=== PATIENT | female | born 1950 | race Asian ===

== ENCOUNTER 2016-09-25 14:37 | Inpatient (IN) | payer MEDICARE, OTHER ==
[~2016-09-25] VITALS: Ht 157.5 cm; Wt 68.5 kg
[~2016-09-25 14:37] MED LIST: AMLO-512 PO; CLON.2 PO; INSLAN SQ; MELA3 PO; XALA2.5OS OU
[2016-09-25] MEDS ORDERED: ATOR40TA28 PO (14:51)
[2016-09-25] MEDS ORDERED: SITA100 PO (14:51)
[2016-09-25] MEDS ORDERED: LISI-661 PO (14:51)
[2016-09-25 14:55] LABS: GLUCOSE,POINT OF CARE 244 MG/DL (70-110)
[2016-09-25 15:47] LABS: BASOPHILS % (AUTO) 0.2 % (0.0-2.0); EOSINOPHILS % (AUTO) 0.2 % (1.0-6.0); HEMATOCRIT 36.1 % (36-46); HEMOGLOBIN 12.3 g/dL (12.0-16.0); LYMPHOCYTES # (AUTO) 1.2 K/uL (1.0-4.8); LYMPHOCYTES % (AUTO) 9.5 % (22.0-44.0); MEAN CORPUSCULAR HEMOGLOBIN 29.5 pg (26.0-34.0); MEAN CORPUSCULAR HGB CONC 34.1 G/dL (31.0-37.0); MEAN CORPUSCULAR VOLUME 87 fL (80-100); MONOCYTES # (AUTO) 0.6 K/uL (0.1-1.0); MONOCYTES % (AUTO) 4.9 % (2.0-9.0); PLATELET COUNT (AUTO) 213 K/uL (150-450); RED BLOOD CELL COUNT(AUTO) 4.17 MIL/uL (4.00-5.20); RED CELL DISTRIBUTION WIDTH 12.3 % (11.5-14.5); WHITE BLOOD COUNT (AUTO) 12.9 K/uL (4.5-11.0)
[2016-09-25 15:56] LABS: NEUTROPHILS % (AUTO) 85.2 % (40.0-70.0)
[2016-09-25 15:57] LABS: ANION GAP 8 mmol/L (8-16); CALCIUM, TOTAL 9.7 mg/dL (8.8-10.5); CARBON DIOXIDE 28 mmol/L (22-29); CHLORIDE 91 mmol/L (98-107); CREATININE 0.88 mg/dL (0.60-1.30); GLOMERULAR FILTR. RATE CALC > 60 mL/min (>60); POTASSIUM 3.5 mmol/L (3.5-5.1); SODIUM SERUM 127 mmol/L (136-145); UREA NITROGEN, BLOOD 19 mg/dL (7-18)
[2016-09-25] MEDS ORDERED: ONDANSETRON HCL 4 MG/2 ML VIAL IVP ONE (18:15)
[2016-09-25] MEDS ORDERED: MORPHINE SULFATE 4 MG/ML SYRINGE IVP ONE ×2 (18:15→21:00)
[2016-09-25] MEDS ORDERED: SODIUM CHLORIDE 0.9% 1,000 ML IV ONE ×2 (18:15→20:00)
[2016-09-25] MEDS ORDERED: DEXAMETHASONE SOD PHOS 4 MG/ML 5 ML VIAL IM ONE (18:15)
[2016-09-25 18:34] LABS: APPEARANCE,URINE CLEAR (CLEAR); GLUCOSE, URINE (UA) >=1000 mg/dL (NEGATIVE); KETONES,URINE TRACE mg/dL (NEGATIVE); LEUKOCYTE ESTERASE ,URINE NEGATIVE (NEGATIVE); OCCULT BLOOD,URINE MODERATE (NEGATIVE); PROTEIN,URINE SEE CONFIRM (NEGATIVE)
[2016-09-25 18:36] LABS: ADD UA MICROSCOPIC YES
[2016-09-25 18:43] LABS: SQUAMOUS EPITHELIAL CELL,UR Rare /LPF (None Seen); SULFOSALICYLIC ACID,URINE 3+ (Negative)
[2016-09-25] MEDS ORDERED: ONDANSETRON HCL 4 MG/2 ML VIAL IVP PRN (22:30)
[2016-09-25] MEDS ORDERED: 0.9% SODIUM CHLORIDE 10 ML SYRINGE IVP PRN (22:30)
[2016-09-25] MEDS ORDERED: ACETAMINOPHEN 325 MG TABLET PO PRN (22:30)
[2016-09-25 22:37] LABS: INFLUENZA TYPE B NEGATIVE FOR TYPE B (NEGATIVE)
[2016-09-26] VITALS (7 sets, daily range): BP systolic 122–152; BP diastolic 67–93
[2016-09-26] MEDS ORDERED: ONDANSETRON HCL 4 MG/2 ML VIAL IVP PRN (06:45)
[2016-09-26] MEDS ORDERED: BISACODYL 10 MG RECTAL RECTAL SUPPOSITORY PR PRN (06:45)
[2016-09-26] MEDS ORDERED: ZOLPIDEM TARTRATE 5 MG TABLET PO PRN (06:45)
[2016-09-26] MEDS ORDERED: IPRATROPIUM BROMIDE 0.5 MG/2.5 ML NEB SOLUTION NEB PRN (06:45)
[2016-09-26] MEDS ORDERED: ALBUTEROL SULFATE 2.5 MG/0.5 ML NEB SOLUTION NEB PRN (06:45)
[2016-09-26] MEDS ORDERED: DEXTROSE 50%-WATER 25 GM/50 ML SYRINGE IVP PRN (07:00)
[2016-09-26] MEDS ORDERED: MORPHINE SULFATE 2 MG/ML SYRINGE IVP PRN (07:15)
[2016-09-26 07:36] LABS: BASOPHILS # (AUTO) 0.02 K/uL (0.00-0.20); BASOPHILS % (AUTO) 0.2 % (0.0-2.0); EOSINOPHILS % (AUTO) 0.01 % (1.0-6.0); HEMATOCRIT 32.2 % (36-46); HEMOGLOBIN 11.2 g/dL (12.0-16.0); LYMPHOCYTES # (AUTO) 0.9 K/uL (1.0-4.8); LYMPHOCYTES % (AUTO) 9.1 % (22.0-44.0); MEAN CORPUSCULAR HEMOGLOBIN 29.6 pg (26.0-34.0); MEAN CORPUSCULAR HGB CONC 34.7 G/dL (31.0-37.0); MEAN CORPUSCULAR VOLUME 85 fL (80-100); MONOCYTES # (AUTO) 0.6 K/uL (0.1-1.0); MONOCYTES % (AUTO) 5.9 % (2.0-9.0); NEUTROPHILS # (AUTO) 8.7 K/uL (1.8-7.7); NEUTROPHILS % (AUTO) 84.8 % (40.0-70.0); PLATELET COUNT (AUTO) 182 K/uL (150-450); RED BLOOD CELL COUNT(AUTO) 3.78 MIL/uL (4.00-5.20); RED CELL DISTRIBUTION WIDTH 12.4 % (11.5-14.5); WHITE BLOOD COUNT (AUTO) 10.2 K/uL (4.5-11.0)
[2016-09-26 07:46] LABS: CALCIUM, TOTAL 8.8 mg/dL (8.8-10.5); CREATININE 1.03 mg/dL (0.60-1.30); POTASSIUM 4.5 mmol/L (3.5-5.1)
[2016-09-26 07:52] LABS: ALBUMIN 3.1 g/dL (3.4-5.0); BILIRUBIN,TOTAL 0.3 mg/dL (0.1-1.0); TOTAL PROTEIN, SERUM 8.2 g/dL (6.4-8.2)
[2016-09-26 08:16] LABS: GLUCOSE,POINT OF CARE 279 MG/DL (70-110)
[2016-09-26] MEDS: PANTOPRAZOLE SODIUM 40 MG/VIAL IVP SCH (08:20)
[2016-09-26] MEDS: HEPARIN SODIUM,PORCINE 5,000 UNITS/ML VIAL SQ SCH ×2 (08:21→15:14)
[2016-09-26] MEDS: AmLODIPine BESYLATE 10 MG TABLET PO SCH (08:21)
[2016-09-26] MEDS: LORATADINE 10 MG TABLET PO SCH (08:21)
[2016-09-26] MEDS: DOCUSATE SODIUM 100 MG CAPSULE PO SCH ×2 (08:21→20:44)
[2016-09-26] MEDS: LISINOPRIL 10 MG TABLET PO SCH (08:21)
[2016-09-26] MEDS: AZITHROMYCIN 500 MG/NS 250 ML IV SCH (08:43)
[2016-09-26] MEDS: SODIUM CHLORIDE 0.9% 1,000 ML IV SCH ×2 (08:44→21:07)
[2016-09-26] MEDS ORDERED: LEVOFLOXACIN 500 MG TABLET PO SCH (09:00)
[2016-09-26] MEDS ORDERED: CloNIDine HCL 0.2 MG TABLET PO SCH (09:00)
[2016-09-26] MEDS ORDERED: SitaGLIPtin PHOSPHATE 100 MG TABLET PO SCH (09:00)
[2016-09-26] MEDS ORDERED: LATANOPROST 0.005% 2.5 ML OPHTHALMIC SOLUTION OU SCH (09:00)
[2016-09-26] MEDS ORDERED: INSULIN DETEMIR 100 UNITS/ML SQ SCH (09:00)
[2016-09-26] MEDS: TIMOLOL MALEATE 0.5% 5 ML OPHTHALMIC SOLUTION OU SCH (10:55)
[2016-09-26] MEDS: ASPIRIN 81 MG CHEWABLE TABLET PO SCH (10:56)
[2016-09-26] MEDS: CefTRIAXone 1 GM/DEXTROSE 50 ML IV SCH (10:56)
[2016-09-26] MEDS: INSULIN ASPART 100 UNITS/ML SQ PRN ×3 (11:40→21:01)
[2016-09-26 12:26] LABS: GLUCOSE COMMENT 1 Received Meds; GLUCOSE,POINT OF CARE 309 MG/DL (70-110)
[2016-09-26] MEDS: ACETAMINOPHEN 325 MG TABLET PO PRN ×2 (15:14→20:44)
[2016-09-26 15:51] LABS: OSMOLALITY 273 mOS/kg (270-310)
[2016-09-26 16:06] LABS: ANION GAP 6 mmol/L (8-16); CALCIUM, TOTAL 8.8 mg/dL (8.8-10.5); CARBON DIOXIDE 28 mmol/L (22-29); CHLORIDE 93 mmol/L (98-107); GLOMERULAR FILTR. RATE CALC > 60 mL/min (>60); POTASSIUM 3.8 mmol/L (3.5-5.1); SODIUM SERUM 127 mmol/L (136-145); UREA NITROGEN, BLOOD 18 mg/dL (7-18); URIC ACID 3.3 mg/dL (2.6-7.2)
[2016-09-26 19:31] LABS: GLUCOSE COMMENT 1 Received Meds; GLUCOSE,POINT OF CARE 184 MG/DL (70-110)
[2016-09-26] MEDS: MELATONIN 3 MG TABLET PO SCH (20:45)
[2016-09-26] MEDS: SitaGLIPtin PHOSPHATE 100 MG TABLET PO SCH (20:53)
[2016-09-26] MEDS: LATANOPROST 0.005% 2.5 ML OPHTHALMIC SOLUTION OU SCH (20:54)
[2016-09-26] MEDS: INSULIN DETEMIR 100 UNITS/ML SQ SCH (21:04)
[2016-09-26] MEDS: ATORVASTATIN CALCIUM 40 MG TABLET PO SCH (21:07)
[2016-09-27] MEDS: HEPARIN SODIUM,PORCINE 5,000 UNITS/ML VIAL SQ SCH ×4 (00:08→21:09)
[2016-09-27 03:16] LABS: GLUCOSE,POINT OF CARE 220 MG/DL (70-110)
[2016-09-27 04:45] VITALS: BP 157/84
[2016-09-27] MEDS: HYDROCODONE/ACETAMINOPHEN 5-325 MG TABLET PO PRN ×2 (04:53→21:05)
[2016-09-27] MEDS: INSULIN ASPART 100 UNITS/ML SQ PRN ×4 (05:48→21:28)
[2016-09-27 06:03] LABS: BASOPHILS # (AUTO) 0.02 K/uL (0.00-0.20); BASOPHILS % (AUTO) 0.2 % (0.0-2.0); EOSINOPHILS # (AUTO) 0.01 K/uL (0.00-0.70); EOSINOPHILS % (AUTO) 0.11 % (1.0-6.0); HEMATOCRIT 30.8 % (36-46); HEMOGLOBIN 10.8 g/dL (12.0-16.0); LYMPHOCYTES # (AUTO) 0.8 K/uL (1.0-4.8); LYMPHOCYTES % (AUTO) 7.8 % (22.0-44.0); MEAN CORPUSCULAR HEMOGLOBIN 29.7 pg (26.0-34.0); MEAN CORPUSCULAR HGB CONC 34.9 G/dL (31.0-37.0); MEAN CORPUSCULAR VOLUME 85 fL (80-100); MONOCYTES # (AUTO) 0.8 K/uL (0.1-1.0); MONOCYTES % (AUTO) 7.4 % (2.0-9.0); NEUTROPHILS # (AUTO) 8.8 K/uL (1.8-7.7); NEUTROPHILS % (AUTO) 84.6 % (40.0-70.0); PLATELET COUNT (AUTO) 180 K/uL (150-450); RED BLOOD CELL COUNT(AUTO) 3.63 MIL/uL (4.00-5.20); RED CELL DISTRIBUTION WIDTH 12.5 % (11.5-14.5); WHITE BLOOD COUNT (AUTO) 10.4 K/uL (4.5-11.0)
[2016-09-27 06:38] LABS: ALBUMIN 2.7 g/dL (3.4-5.0); BILIRUBIN,TOTAL 0.2 mg/dL (0.1-1.0); CALCIUM, TOTAL 8.3 mg/dL (8.8-10.5); CHOL/HDL RATIO 2.3 (3.9-5.7); MAGNESIUM 1.5 mg/dL (1.80-2.40); POTASSIUM 3.2 mmol/L (3.5-5.1); THYROID STIMULATING HORMONE 0.37 uIU/mL (0.36-3.74); TOTAL PROTEIN, SERUM 7.3 g/dL (6.4-8.2)
[2016-09-27 06:41] LABS: GLUCOSE,POINT OF CARE 162 MG/DL (70-110)
[2016-09-27 08:03] LABS: VITAMIN B12 LEVEL 721 pg/mL (211-911)
[2016-09-27] MEDS: DOCUSATE SODIUM 100 MG CAPSULE PO SCH ×2 (08:13→21:06)
[2016-09-27] MEDS: LORATADINE 10 MG TABLET PO SCH (08:13)
[2016-09-27] MEDS: LISINOPRIL 10 MG TABLET PO SCH (08:13)
[2016-09-27] MEDS: AmLODIPine BESYLATE 10 MG TABLET PO SCH (08:13)
[2016-09-27] MEDS: AZITHROMYCIN 500 MG/NS 250 ML IV SCH (08:14)
[2016-09-27] MEDS: ASPIRIN 81 MG CHEWABLE TABLET PO SCH (08:14)
[2016-09-27] MEDS: TIMOLOL MALEATE 0.5% 5 ML OPHTHALMIC SOLUTION OU SCH (08:14)
[2016-09-27] MEDS: PANTOPRAZOLE SODIUM 40 MG/VIAL IVP SCH (08:14)
[2016-09-27] MEDS: CefTRIAXone 1 GM/DEXTROSE 50 ML IV SCH (08:14)
[2016-09-27 08:24] VITALS: BP 137/77
[2016-09-27] MEDS ORDERED: POTASSIUM CHLORIDE 20 MEQ ER TABLET PO ONE (10:45)
[2016-09-27] MEDS ORDERED: MAGNESIUM SULFATE 4 GM/WATER 100 ML IV ONE (10:45)
[2016-09-27 11:36] VITALS: BP 139/75
[2016-09-27 11:41] LABS: GLUCOSE,POINT OF CARE 184 MG/DL (70-110)
[2016-09-27] MEDS: SODIUM CHLORIDE 0.9% 1,000 ML IV SCH (12:45)
[2016-09-27 15:13] VITALS: BP 151/83
[2016-09-27] MEDS: ACETAMINOPHEN 325 MG TABLET PO PRN (15:28)
[2016-09-27 17:41] LABS: GLUCOSE COMMENT 1 Received Meds; GLUCOSE,POINT OF CARE 166 MG/DL (70-110)
[2016-09-27 19:49] VITALS: BP 167/90
[2016-09-27] MEDS: ATORVASTATIN CALCIUM 40 MG TABLET PO SCH (21:05)
[2016-09-27] MEDS: MELATONIN 3 MG TABLET PO SCH (21:05)
[2016-09-27] MEDS: SitaGLIPtin PHOSPHATE 100 MG TABLET PO SCH (21:05)
[2016-09-27] MEDS: LATANOPROST 0.005% 2.5 ML OPHTHALMIC SOLUTION OU SCH (21:06)
[2016-09-27] MEDS: INSULIN DETEMIR 100 UNITS/ML SQ SCH (21:28)
[2016-09-27 23:16] VITALS: BP 138/78
[2016-09-28] MEDS: HYDROCODONE/ACETAMINOPHEN 5-325 MG TABLET PO PRN ×3 (02:07→20:42)
[2016-09-28 03:13] LABS: GLUCOSE COMMENT 1 Received Meds; GLUCOSE,POINT OF CARE 226 MG/DL (70-110)
[2016-09-28 04:29] VITALS: BP 131/73
[2016-09-28] MEDS: INSULIN ASPART 100 UNITS/ML SQ PRN ×4 (06:13→20:47)
[2016-09-28] MEDS: SODIUM CHLORIDE 0.9% 1,000 ML IV SCH ×2 (06:29→08:28)
[2016-09-28 06:35] LABS: GLUCOSE,POINT OF CARE 128 MG/DL (70-110)
[2016-09-28] MEDS ORDERED: POTASSIUM CHL 10 MEQ/WATER 50 ML IV PRN (07:00)
[2016-09-28] MEDS ORDERED: MAGNESIUM SULFATE 4 GM/WATER 100 ML IV PRN (07:00)
[2016-09-28] MEDS ORDERED: MAGNESIUM OXIDE 400 MG TABLET PO PRN (07:00)
[2016-09-28] MEDS ORDERED: MAGNESIUM SULFATE 2 GM in DEXTROSE 5%-WATER 50 ML IV PRN (07:00)
[2016-09-28 08:12] VITALS: BP 152/99
[2016-09-28 08:18] LABS: ALBUMIN 2.5 g/dL (3.4-5.0); POTASSIUM 3.4 mmol/L (3.5-5.1)
[2016-09-28] MEDS: POTASSIUM CHLORIDE 20 MEQ ER TABLET PO PRN (08:25)
[2016-09-28] MEDS: LISINOPRIL 10 MG TABLET PO SCH (08:26)
[2016-09-28] MEDS: ASPIRIN 81 MG CHEWABLE TABLET PO SCH (08:26)
[2016-09-28] MEDS: DOCUSATE SODIUM 100 MG CAPSULE PO SCH ×2 (08:26→20:42)
[2016-09-28] MEDS: LORATADINE 10 MG TABLET PO SCH (08:26)
[2016-09-28] MEDS: AmLODIPine BESYLATE 10 MG TABLET PO SCH (08:26)
[2016-09-28] MEDS: HEPARIN SODIUM,PORCINE 5,000 UNITS/ML VIAL SQ SCH ×2 (08:27→15:19)
[2016-09-28] MEDS: TIMOLOL MALEATE 0.5% 5 ML OPHTHALMIC SOLUTION OU SCH (08:27)
[2016-09-28] MEDS: PANTOPRAZOLE SODIUM 40 MG/VIAL IVP SCH (08:27)
[2016-09-28] MEDS: AZITHROMYCIN 500 MG/NS 250 ML IV SCH (08:28)
[2016-09-28] MEDS: CefTRIAXone 1 GM/DEXTROSE 50 ML IV SCH (08:28)
[2016-09-28 11:17] VITALS: BP 149/85
[2016-09-28 12:31] LABS: GLUCOSE COMMENT 1 Received Meds; GLUCOSE,POINT OF CARE 186 MG/DL (70-110)
[2016-09-28 15:35] VITALS: BP 149/99
[2016-09-28 18:16] LABS: GLUCOSE COMMENT 1 Received Meds; GLUCOSE,POINT OF CARE 163 MG/DL (70-110)
[2016-09-28 20:31] VITALS: BP 151/91
[2016-09-28] MEDS: ATORVASTATIN CALCIUM 40 MG TABLET PO SCH (20:42)
[2016-09-28] MEDS: LATANOPROST 0.005% 2.5 ML OPHTHALMIC SOLUTION OU SCH (20:43)
[2016-09-28] MEDS: SitaGLIPtin PHOSPHATE 100 MG TABLET PO SCH (20:43)
[2016-09-28] MEDS: MELATONIN 3 MG TABLET PO SCH (20:43)
[2016-09-28] MEDS: INSULIN DETEMIR 100 UNITS/ML SQ SCH (20:46)
[2016-09-28 23:52] VITALS: BP 139/76
[2016-09-29] MEDS: HEPARIN SODIUM,PORCINE 5,000 UNITS/ML VIAL SQ SCH ×4 (00:13→23:42)
[2016-09-29 01:56] LABS: GLUCOSE,POINT OF CARE 177 MG/DL (70-110)
[2016-09-29] MEDS: SODIUM CHLORIDE 0.9% 1,000 ML IV SCH (03:25)
[2016-09-29] MEDS: HYDROCODONE/ACETAMINOPHEN 5-325 MG TABLET PO PRN ×5 (03:25→20:49)
[2016-09-29 04:24] VITALS: BP 139/87
[2016-09-29 07:11] VITALS: BP 138/67
[2016-09-29 07:26] LABS: GLUCOSE,POINT OF CARE 111 MG/DL (70-110)
[2016-09-29] MEDS: AZITHROMYCIN 500 MG/NS 250 ML IV SCH (08:16)
[2016-09-29] MEDS: LISINOPRIL 10 MG TABLET PO SCH (08:43)
[2016-09-29] MEDS: DOCUSATE SODIUM 100 MG CAPSULE PO SCH ×2 (08:44→20:50)
[2016-09-29] MEDS: TIMOLOL MALEATE 0.5% 5 ML OPHTHALMIC SOLUTION OU SCH (08:46)
[2016-09-29] MEDS: ASPIRIN 81 MG CHEWABLE TABLET PO SCH (08:47)
[2016-09-29] MEDS: AmLODIPine BESYLATE 10 MG TABLET PO SCH (08:48)
[2016-09-29] MEDS: LORATADINE 10 MG TABLET PO SCH (08:52)
[2016-09-29] MEDS: PANTOPRAZOLE SODIUM 40 MG/VIAL IVP SCH (09:42)
[2016-09-29] MEDS: CefTRIAXone 1 GM/DEXTROSE 50 ML IV SCH (09:42)
[2016-09-29 10:48] LABS: CREATININE 0.94 mg/dL (0.60-1.30); POTASSIUM 3.7 mmol/L (3.5-5.1)
[2016-09-29 10:51] LABS: MAGNESIUM 1.7 mg/dL (1.80-2.40)
[2016-09-29 11:14] VITALS: BP 128/73
[2016-09-29 11:36] LABS: GLUCOSE,POINT OF CARE 146 MG/DL (70-110)
[2016-09-29] MEDS: INSULIN ASPART 100 UNITS/ML SQ PRN ×2 (12:17→17:56)
[2016-09-29] MEDS: AMPICILLIN SODIUM/SULBACTAM NA 3 GM in SODIUM CHLORIDE 0.9% 100 ML IV SCH ×2 (14:56→17:55)
[2016-09-29 15:26] VITALS: BP 135/67
[2016-09-29 17:01] LABS: GLUCOSE,POINT OF CARE 170 MG/DL (70-110)
[2016-09-29] MEDS ORDERED: VANCOMYCIN HCL 1 GM/D5% WATER 200 ML IV ONE (18:30)
[2016-09-29 19:37] VITALS: BP 138/74
[2016-09-29] MEDS: ATORVASTATIN CALCIUM 40 MG TABLET PO SCH (20:49)
[2016-09-29] MEDS: MELATONIN 3 MG TABLET PO SCH (20:49)
[2016-09-29] MEDS: OXYMETAZOLINE HCL 0.05% 15 ML NASAL SPRAY NASAL SCH (20:50)
[2016-09-29] MEDS: SitaGLIPtin PHOSPHATE 100 MG TABLET PO SCH (20:50)
[2016-09-29] MEDS: LATANOPROST 0.005% 2.5 ML OPHTHALMIC SOLUTION OU SCH (20:50)
[2016-09-29] MEDS: INSULIN DETEMIR 100 UNITS/ML SQ SCH (21:00)
[2016-09-29] MEDS: PIPERACILLIN/TAZO 3.375 GM/D5W 50 ML IV SCH (22:19)
[2016-09-29 23:41] VITALS: BP 139/67
[2016-09-30] VITALS (7 sets, daily range): BP systolic 115–139; BP diastolic 64–77
[2016-09-30] MEDS: PIPERACILLIN/TAZO 3.375 GM/D5W 50 ML IV SCH ×3 (04:22→20:45)
[2016-09-30] MEDS: HYDROCODONE/ACETAMINOPHEN 5-325 MG TABLET PO PRN ×2 (04:32→08:28)
[2016-09-30 05:31] LABS: GLUCOSE COMMENT 1 Received Meds; GLUCOSE,POINT OF CARE 132 MG/DL (70-110)
[2016-09-30] MEDS: INSULIN ASPART 100 UNITS/ML SQ PRN ×3 (05:36→20:46)
[2016-09-30 06:01] LABS: GLUCOSE,POINT OF CARE 151 MG/DL (70-110)
[2016-09-30 06:01] LABS: GLUCOSE COMMENT 1 Received Meds; GLUCOSE,POINT OF CARE 166 MG/DL (70-110)
[2016-09-30 06:34] LABS: CALCIUM, TOTAL 8.5 mg/dL (8.8-10.5); CREATININE 1.02 mg/dL (0.60-1.30); POTASSIUM 3.3 mmol/L (3.5-5.1)
[2016-09-30] MEDS: PANTOPRAZOLE SODIUM 40 MG/VIAL IVP SCH (08:13)
[2016-09-30] MEDS: VANCOMYCIN HCL 750 MG in DEXTROSE 5%-WATER 150 ML IV SCH ×2 (08:13→19:32)
[2016-09-30] MEDS: HEPARIN SODIUM,PORCINE 5,000 UNITS/ML VIAL SQ SCH ×3 (08:26→23:56)
[2016-09-30] MEDS: TIMOLOL MALEATE 0.5% 5 ML OPHTHALMIC SOLUTION OU SCH (08:26)
[2016-09-30] MEDS: LORATADINE 10 MG TABLET PO SCH (08:27)
[2016-09-30] MEDS: ASPIRIN 81 MG CHEWABLE TABLET PO SCH (08:27)
[2016-09-30] MEDS: LISINOPRIL 10 MG TABLET PO SCH (08:27)
[2016-09-30] MEDS: DOCUSATE SODIUM 100 MG CAPSULE PO SCH ×2 (08:27→21:48)
[2016-09-30] MEDS: AmLODIPine BESYLATE 10 MG TABLET PO SCH (08:27)
[2016-09-30] MEDS: OXYMETAZOLINE HCL 0.05% 15 ML NASAL SPRAY NASAL SCH ×2 (08:28→20:44)
[2016-09-30] MEDS: MAGNESIUM HYDROXIDE SUSPENSION 30 ML UDCUP PO PRN (08:36)
[2016-09-30 10:17] LABS: BASOPHILS % (AUTO) 0.9 % (0.0-2.0); EOSINOPHILS % (AUTO) 3.9 % (1.0-6.0); HEMOGLOBIN 10.2 g/dL (12.0-16.0); LYMPHOCYTES # (AUTO) 0.8 K/uL (1.0-4.8); LYMPHOCYTES % (AUTO) 17.6 % (22.0-44.0); MEAN CORPUSCULAR HEMOGLOBIN 28.9 pg (26.0-34.0); MEAN CORPUSCULAR HGB CONC 34.1 G/dL (31.0-37.0); MEAN CORPUSCULAR VOLUME 85 fL (80-100); MONOCYTES # (AUTO) 0.4 K/uL (0.1-1.0); MONOCYTES % (AUTO) 8.2 % (2.0-9.0); NEUTROPHILS % (AUTO) 69.4 % (40.0-70.0); PLATELET COUNT (AUTO) 182 K/uL (150-450); RED BLOOD CELL COUNT(AUTO) 3.53 MIL/uL (4.00-5.20); RED CELL DISTRIBUTION WIDTH 12.7 % (11.5-14.5); WHITE BLOOD COUNT (AUTO) 4.4 K/uL (4.5-11.0)
[2016-09-30 10:32] LABS: ALANINE AMINOTRANSFERASE 138 U/L (12-78); ALBUMIN 2.3 g/dL (3.4-5.0); ANION GAP 7 mmol/L (8-16); ASPARTATE AMINOTRANSFERASE 131 U/L (15-37); BILIRUBIN,TOTAL 0.3 mg/dL (0.1-1.0); CALCIUM, TOTAL 8.5 mg/dL (8.8-10.5); CARBON DIOXIDE 30 mmol/L (22-29); CHLORIDE 95 mmol/L (98-107); CREATINE KINASE, TOTAL 28 U/L (26-192); CREATININE 1.17 mg/dL (0.60-1.30); GLOMERULAR FILTR. RATE CALC 46 mL/min (>60); POTASSIUM 3.2 mmol/L (3.5-5.1); PROTHROMBIN TIME 10.8 SEC (9.4-11.6); SODIUM SERUM 132 mmol/L (136-145); TOTAL PROTEIN, SERUM 7.1 g/dL (6.4-8.2); UREA NITROGEN, BLOOD 12 mg/dL (7-18)
[2016-09-30] MEDS: POTASSIUM CHLORIDE 20 MEQ ER TABLET PO PRN (11:36)
[2016-09-30 11:51] LABS: GLUCOSE,POINT OF CARE 237 MG/DL (70-110)
[2016-09-30] MEDS ORDERED: DOBUTamine HCL/D5W 500 MG/250 ML IV BAG [STRESS LAB ONLY] IV ONE (13:35)
[2016-09-30] MEDS ORDERED: ATROPINE SULFATE 0.1 MG/ML 10 ML SYRINGE IVP ONE (13:45)
[2016-09-30] MEDS ORDERED: DOBUTamine HCL/D5W 500 MG/250 ML IV BAG IV ONE (16:09)
[2016-09-30] MEDS ORDERED: ATROPINE SULFATE 1 MG/ML VIAL IM ONE (16:09)
[2016-09-30 17:26] LABS: GLUCOSE,POINT OF CARE 249 MG/DL (70-110)
[2016-09-30 18:50] LABS: CREATINE KINASE, TOTAL 32 U/L (26-192)
[2016-09-30] MEDS: ACETAMINOPHEN 325 MG TABLET PO PRN (19:29)
[2016-09-30] MEDS: SitaGLIPtin PHOSPHATE 100 MG TABLET PO SCH (20:44)
[2016-09-30] MEDS: ATORVASTATIN CALCIUM 40 MG TABLET PO SCH (20:44)
[2016-09-30] MEDS: MELATONIN 3 MG TABLET PO SCH (20:44)
[2016-09-30] MEDS: LATANOPROST 0.005% 2.5 ML OPHTHALMIC SOLUTION OU SCH (20:44)
[2016-09-30] MEDS: INSULIN DETEMIR 100 UNITS/ML SQ SCH (20:45)
[2016-09-30 21:35] LABS: GLUCOSE COMMENT 1 Received Meds; GLUCOSE,POINT OF CARE 171 MG/DL (70-110)
[2016-10-01] VITALS: BP 133/75
[2016-10-01] MEDS: ACETAMINOPHEN 325 MG TABLET PO PRN (00:17)
[2016-10-01] MEDS: PIPERACILLIN/TAZO 3.375 GM/D5W 50 ML IV SCH ×4 (02:26→21:12)
[2016-10-01 04:30] VITALS: BP 132/80
[2016-10-01 05:39] LABS: BASOPHILS % (AUTO) 0.5 % (0.0-2.0); EOSINOPHILS % (AUTO) 11.3 % (1.0-6.0); HEMATOCRIT 29.4 % (36-46); HEMOGLOBIN 9.9 g/dL (12.0-16.0); LYMPHOCYTES # (AUTO) 1.4 K/uL (1.0-4.8); LYMPHOCYTES % (AUTO) 29.8 % (22.0-44.0); MEAN CORPUSCULAR HEMOGLOBIN 29.1 pg (26.0-34.0); MEAN CORPUSCULAR HGB CONC 33.5 G/dL (31.0-37.0); MEAN CORPUSCULAR VOLUME 87 fL (80-100); MONOCYTES # (AUTO) 0.5 K/uL (0.1-1.0); MONOCYTES % (AUTO) 11.6 % (2.0-9.0); NEUTROPHILS # (AUTO) 2.2 K/uL (1.8-7.7); NEUTROPHILS % (AUTO) 46.8 % (40.0-70.0); PLATELET COUNT (AUTO) 198 K/uL (150-450); RED BLOOD CELL COUNT(AUTO) 3.39 MIL/uL (4.00-5.20); RED CELL DISTRIBUTION WIDTH 12.8 % (11.5-14.5); WHITE BLOOD COUNT (AUTO) 4.7 K/uL (4.5-11.0)
[2016-10-01 05:59] LABS: CREATININE 1.11 mg/dL (0.60-1.30); PHOSPHORUS 3.2 mg/dL (2.5-4.9); POTASSIUM 3.7 mmol/L (3.5-5.1)
[2016-10-01 06:06] LABS: GLUCOSE,POINT OF CARE 80 MG/DL (70-110)
[2016-10-01] MEDS ORDERED: RINGERS SOLUTION,LACTATED 1,000 ML IV ONE ×2 (06:24→06:30)
[2016-10-01 06:25] LABS: GLUCOSE,POINT OF CARE 78 MG/DL (70-110)
[2016-10-01] MEDS ORDERED: OXYMETAZOLINE HCL 0.05% 15 ML NASAL SPRAY NASAL ONE (06:42)
[2016-10-01] MEDS ORDERED: LIDOCAINE HCL 1%/EPI 1:200,000/PF 30 ML VIAL ONE (06:42)
[2016-10-01] MEDS ORDERED: SODIUM CHLORIDE 0.9% 100 ML ONE (06:43)
[2016-10-01] MEDS ORDERED: MUPIROCIN CALCIUM 2% 22 GM OINTMENT ONE (06:43)
[2016-10-01] MEDS ORDERED: PHENYLEPHRINE HCL 1% 15 ML NASAL SPRAY NASAL ONE (07:43)
[2016-10-01] MEDS ORDERED: FentaNYL CITRATE-PF 100 MCG/2 ML VIAL IVP PRN ×2 (08:30)
[2016-10-01] MEDS ORDERED: OXYGEN THERAPY IH SCH ×2 (08:30→20:00)
[2016-10-01] MEDS ORDERED: HYDROmorphone 2 MG/ML SYRINGE IVP PRN ×2 (08:30)
[2016-10-01] MEDS ORDERED: MEPERIDINE-PF 25 MG/ML SYRINGE IVP PRN ×2 (08:30)
[2016-10-01] MEDS: OXYMETAZOLINE HCL 0.05% 15 ML NASAL SPRAY NASAL SCH ×2 (09:00→21:00)
[2016-10-01 11:30] VITALS: BP 165/90
[2016-10-01] MEDS ORDERED: DEXAMETHASONE SOD PHOS 4 MG/ML VIAL IVP ONE (12:00)
[2016-10-01] MEDS ORDERED: PROPOFOL 1% 20 ML VIAL IVP ONE (12:00)
[2016-10-01] MEDS ORDERED: METOPROLOL TARTRATE 5 MG/5 ML VIAL IVP ONE (12:00)
[2016-10-01] MEDS ORDERED: MIDAZOLAM HCL 2 MG/2 ML VIAL IVP ONE (12:00)
[2016-10-01] MEDS ORDERED: FentaNYL CITRATE-PF 250 MCG/5 ML VIAL IVP ONE (12:00)
[2016-10-01] MEDS ORDERED: ONDANSETRON HCL 4 MG/2 ML VIAL IVP ONE (12:00)
[2016-10-01] MEDS ORDERED: LIDOCAINE HCL/PF 2% 5 ML VIAL INJ ONE (12:00)
[2016-10-01] MEDS ORDERED: SUCCINYLCHOLINE CHLORIDE 20 MG/ML 10 ML VIAL IVP ONE (12:00)
[2016-10-01] MEDS: ASPIRIN 81 MG CHEWABLE TABLET PO SCH (12:08)
[2016-10-01] MEDS: LORATADINE 10 MG TABLET PO SCH (12:08)
[2016-10-01] MEDS: AmLODIPine BESYLATE 10 MG TABLET PO SCH (12:08)
[2016-10-01] MEDS: LISINOPRIL 10 MG TABLET PO SCH (12:08)
[2016-10-01] MEDS: TIMOLOL MALEATE 0.5% 5 ML OPHTHALMIC SOLUTION OU SCH (12:09)
[2016-10-01] MEDS: DOCUSATE SODIUM 100 MG CAPSULE PO SCH ×2 (12:09→21:21)
[2016-10-01] MEDS: HEPARIN SODIUM,PORCINE 5,000 UNITS/ML VIAL SQ SCH ×2 (12:09→16:00)
[2016-10-01] MEDS: HYDROCODONE/ACETAMINOPHEN 5-325 MG TABLET PO PRN ×2 (12:09→17:07)
[2016-10-01] MEDS: LATANOPROST 0.005% 2.5 ML OPHTHALMIC SOLUTION OU SCH (12:10)
[2016-10-01] MEDS: PANTOPRAZOLE SODIUM 40 MG/VIAL IVP SCH (12:14)
[2016-10-01 12:31] LABS: GLUCOSE,POINT OF CARE 195 MG/DL (70-110)
[2016-10-01 16:06] VITALS: BP 136/50
[2016-10-01] MEDS: VANCOMYCIN HCL 750 MG in DEXTROSE 5%-WATER 150 ML IV SCH (17:13)
[2016-10-01] MEDS: INSULIN ASPART 100 UNITS/ML SQ PRN ×2 (17:17→22:01)
[2016-10-01 20:30] VITALS: BP 133/78
[2016-10-01] MEDS: SitaGLIPtin PHOSPHATE 100 MG TABLET PO SCH (21:21)
[2016-10-01] MEDS: MELATONIN 3 MG TABLET PO SCH (21:21)
[2016-10-01] MEDS: ATORVASTATIN CALCIUM 40 MG TABLET PO SCH (21:21)
[2016-10-01] MEDS: INSULIN DETEMIR 100 UNITS/ML SQ SCH (22:02)
[2016-10-01 22:26] LABS: GLUCOSE,POINT OF CARE 315 MG/DL (70-110)
[2016-10-01 22:26] LABS: GLUCOSE COMMENT 1 Received Meds; GLUCOSE,POINT OF CARE 331 MG/DL (70-110)
[2016-10-02] VITALS (7 sets, daily range): BP systolic 120–135; BP diastolic 59–72
[2016-10-02] MEDS: VANCOMYCIN HCL 750 MG in DEXTROSE 5%-WATER 150 ML IV SCH ×3 (00:06→16:09)
[2016-10-02] MEDS: HEPARIN SODIUM,PORCINE 5,000 UNITS/ML VIAL SQ SCH ×3 (00:07→17:13)
[2016-10-02] MEDS: ACETAMINOPHEN 325 MG TABLET PO PRN ×3 (00:08→18:39)
[2016-10-02] MEDS: PIPERACILLIN/TAZO 3.375 GM/D5W 50 ML IV SCH ×4 (02:33→19:57)
[2016-10-02] MEDS: INSULIN ASPART 100 UNITS/ML SQ PRN ×3 (05:57→20:06)
[2016-10-02 06:21] LABS: GLUCOSE COMMENT 1 Received Meds; GLUCOSE,POINT OF CARE 225 MG/DL (70-110)
[2016-10-02 07:42] LABS: CALCIUM, TOTAL 8.7 mg/dL (8.8-10.5); CREATININE 1.23 mg/dL (0.60-1.30); POTASSIUM 3.6 mmol/L (3.5-5.1)
[2016-10-02] MEDS ORDERED: ASPIRIN 81 MG EC TABLET ONE (08:05)
[2016-10-02] MEDS: PANTOPRAZOLE SODIUM 40 MG/VIAL IVP SCH (08:20)
[2016-10-02] MEDS: TIMOLOL MALEATE 0.5% 5 ML OPHTHALMIC SOLUTION OU SCH (08:21)
[2016-10-02] MEDS: LORATADINE 10 MG TABLET PO SCH (08:22)
[2016-10-02] MEDS: DOCUSATE SODIUM 100 MG CAPSULE PO SCH ×2 (08:22→19:56)
[2016-10-02] MEDS: LISINOPRIL 10 MG TABLET PO SCH (08:22)
[2016-10-02] MEDS: AmLODIPine BESYLATE 10 MG TABLET PO SCH (08:22)
[2016-10-02] MEDS: ASPIRIN 81 MG CHEWABLE TABLET PO SCH (09:00)
[2016-10-02] MEDS: OXYMETAZOLINE HCL 0.05% 15 ML NASAL SPRAY NASAL SCH ×2 (09:00→19:55)
[2016-10-02 17:11] LABS: GLUCOSE,POINT OF CARE 156 MG/DL (70-110)
[2016-10-02] MEDS: SitaGLIPtin PHOSPHATE 100 MG TABLET PO SCH (19:56)
[2016-10-02] MEDS: MELATONIN 3 MG TABLET PO SCH (19:56)
[2016-10-02] MEDS: ATORVASTATIN CALCIUM 40 MG TABLET PO SCH (19:56)
[2016-10-02] MEDS: LATANOPROST 0.005% 2.5 ML OPHTHALMIC SOLUTION OU SCH (19:56)
[2016-10-02] MEDS ORDERED: SODIUM CHLORIDE 0.9% 1,000 ML IV ONE (20:03)
[2016-10-02] MEDS: INSULIN DETEMIR 100 UNITS/ML SQ SCH (20:07)
[2016-10-02 21:15] LABS: GLUCOSE,POINT OF CARE 126 MG/DL (70-110)
[2016-10-02 21:16] LABS: GLUCOSE,POINT OF CARE 198 MG/DL (70-110)
[2016-10-03] MEDS: HEPARIN SODIUM,PORCINE 5,000 UNITS/ML VIAL SQ SCH ×4 (00:02→23:16)
[2016-10-03] MEDS: VANCOMYCIN HCL 750 MG in DEXTROSE 5%-WATER 150 ML IV SCH (00:03)
[2016-10-03] MEDS: ACETAMINOPHEN 325 MG TABLET PO PRN ×4 (04:05→19:55)
[2016-10-03 04:43] VITALS: BP 141/79
[2016-10-03] MEDS: INSULIN ASPART 100 UNITS/ML SQ PRN ×2 (05:41→17:47)
[2016-10-03 06:31] LABS: GLUCOSE,POINT OF CARE 100 MG/DL (70-110)
[2016-10-03 07:49] LABS: CALCIUM, TOTAL 8.9 mg/dL (8.8-10.5); CREATININE 1.09 mg/dL (0.60-1.30); POTASSIUM 3.9 mmol/L (3.5-5.1)
[2016-10-03 08:07] VITALS: BP 149/76
[2016-10-03] MEDS: LORATADINE 10 MG TABLET PO SCH (08:29)
[2016-10-03] MEDS: ASPIRIN 81 MG CHEWABLE TABLET PO SCH (08:29)
[2016-10-03] MEDS: DOCUSATE SODIUM 100 MG CAPSULE PO SCH ×2 (08:29→19:54)
[2016-10-03] MEDS: AmLODIPine BESYLATE 10 MG TABLET PO SCH (08:29)
[2016-10-03] MEDS: PANTOPRAZOLE SODIUM 40 MG/VIAL IVP SCH (08:29)
[2016-10-03] MEDS: LISINOPRIL 10 MG TABLET PO SCH (08:29)
[2016-10-03] MEDS: OXYMETAZOLINE HCL 0.05% 15 ML NASAL SPRAY NASAL SCH ×2 (08:30→19:56)
[2016-10-03] MEDS: TIMOLOL MALEATE 0.5% 5 ML OPHTHALMIC SOLUTION OU SCH (08:30)
[2016-10-03 11:10] VITALS: BP 130/74
[2016-10-03] MEDS ORDERED: SODIUM CHLORIDE 0.9% 1,000 ML IV ONE (11:21)
[2016-10-03 11:56] LABS: GLUCOSE,POINT OF CARE 140 MG/DL (70-110)
[2016-10-03] MEDS ORDERED: VANCOMYCIN HCL 500 MG in DEXTROSE 5%-WATER 100 ML IV ONE (12:00)
[2016-10-03 15:05] VITALS: BP 144/83
[2016-10-03] MEDS ORDERED: HEPARIN SODIUM 1000 UNITS/NS 500 ML ONE (15:18)
[2016-10-03 17:51] LABS: GLUCOSE COMMENT 1 Received Meds; GLUCOSE,POINT OF CARE 169 MG/DL (70-110)
[2016-10-03 19:34] VITALS: BP 142/74
[2016-10-03] MEDS: VANCOMYCIN HCL 1 GM/D5% WATER 200 ML IV SCH (19:52)
[2016-10-03] MEDS: LATANOPROST 0.005% 2.5 ML OPHTHALMIC SOLUTION OU SCH (19:54)
[2016-10-03] MEDS: ATORVASTATIN CALCIUM 40 MG TABLET PO SCH (19:54)
[2016-10-03] MEDS: MELATONIN 3 MG TABLET PO SCH (19:54)
[2016-10-03] MEDS: SitaGLIPtin PHOSPHATE 100 MG TABLET PO SCH (20:06)
[2016-10-03] MEDS: INSULIN DETEMIR 100 UNITS/ML SQ SCH (20:34)
[2016-10-03 20:40] LABS: GLUCOSE,POINT OF CARE 260 MG/DL (70-110)
[2016-10-03] MEDS: CefTRIAXone SODIUM 2 GM in DEXTROSE 5%-WATER 50 ML IV SCH (23:16)
[2016-10-03 23:37] VITALS: BP 140/76
[2016-10-04] VITALS (7 sets, daily range): BP systolic 126–153; BP diastolic 63–88
[2016-10-04] MEDS: ACETAMINOPHEN 325 MG TABLET PO PRN ×4 (04:17→23:09)
[2016-10-04 05:11] LABS: GLUCOSE,POINT OF CARE 108 MG/DL (70-110)
[2016-10-04 06:55] LABS: ANION GAP 9 mmol/L (8-16); CALCIUM, TOTAL 8.1 mg/dL (8.8-10.5); CARBON DIOXIDE 28 mmol/L (22-29); CHLORIDE 101 mmol/L (98-107); CREATININE 0.92 mg/dL (0.60-1.30); GLOMERULAR FILTR. RATE CALC > 60 mL/min (>60); POTASSIUM 3.8 mmol/L (3.5-5.1); SODIUM SERUM 138 mmol/L (136-145); UREA NITROGEN, BLOOD 8 mg/dL (7-18)
[2016-10-04] MEDS: VANCOMYCIN HCL 1 GM/D5% WATER 200 ML IV SCH ×2 (08:04→20:17)
[2016-10-04] MEDS: HEPARIN SODIUM,PORCINE 5,000 UNITS/ML VIAL SQ SCH ×3 (08:05→23:00)
[2016-10-04] MEDS: LORATADINE 10 MG TABLET PO SCH (08:06)
[2016-10-04] MEDS: TIMOLOL MALEATE 0.5% 5 ML OPHTHALMIC SOLUTION OU SCH (08:06)
[2016-10-04] MEDS: PANTOPRAZOLE SODIUM 40 MG/VIAL IVP SCH (08:06)
[2016-10-04] MEDS: DOCUSATE SODIUM 100 MG CAPSULE PO SCH ×2 (08:06→20:17)
[2016-10-04] MEDS: ASPIRIN 81 MG CHEWABLE TABLET PO SCH (08:06)
[2016-10-04] MEDS: OXYMETAZOLINE HCL 0.05% 15 ML NASAL SPRAY NASAL SCH ×2 (08:07→20:05)
[2016-10-04] MEDS: LISINOPRIL 10 MG TABLET PO SCH (09:00)
[2016-10-04] MEDS: AmLODIPine BESYLATE 10 MG TABLET PO SCH (09:00)
[2016-10-04] MEDS: CefTRIAXone SODIUM 2 GM in DEXTROSE 5%-WATER 50 ML IV SCH ×2 (11:20→23:00)
[2016-10-04 11:31] LABS: GLUCOSE,POINT OF CARE 177 MG/DL (70-110)
[2016-10-04] MEDS: INSULIN ASPART 100 UNITS/ML SQ PRN ×2 (11:34→17:08)
[2016-10-04] MEDS ORDERED: SODIUM CL IRRIG SOLN BOTTLE 250 ML IRRIG ONE (15:46)
[2016-10-04 17:31] LABS: GLUCOSE COMMENT 1 Received Meds; GLUCOSE,POINT OF CARE 146 MG/DL (70-110)
[2016-10-04] MEDS: ATORVASTATIN CALCIUM 40 MG TABLET PO SCH (20:16)
[2016-10-04] MEDS: MELATONIN 3 MG TABLET PO SCH (20:17)
[2016-10-04] MEDS: LATANOPROST 0.005% 2.5 ML OPHTHALMIC SOLUTION OU SCH (20:17)
[2016-10-04] MEDS: SitaGLIPtin PHOSPHATE 100 MG TABLET PO SCH (20:23)
[2016-10-04] MEDS: INSULIN DETEMIR 100 UNITS/ML SQ SCH (20:35)
[2016-10-04 20:36] LABS: GLUCOSE,POINT OF CARE 260 MG/DL (70-110)
[2016-10-05 05:15] VITALS: BP 140/85
[2016-10-05] MEDS: ACETAMINOPHEN 325 MG TABLET PO PRN ×4 (05:27→23:54)
[2016-10-05] MEDS: OXYMETAZOLINE HCL 0.05% 15 ML NASAL SPRAY NASAL SCH ×2 (05:31→19:59)
[2016-10-05 05:46] LABS: GLUCOSE,POINT OF CARE 146 MG/DL (70-110)
[2016-10-05] MEDS: PANTOPRAZOLE SODIUM 40 MG/VIAL IVP SCH (07:29)
[2016-10-05] MEDS: DOCUSATE SODIUM 100 MG CAPSULE PO SCH ×2 (07:30→20:15)
[2016-10-05] MEDS: HEPARIN SODIUM,PORCINE 5,000 UNITS/ML VIAL SQ SCH ×3 (07:30→23:53)
[2016-10-05] MEDS: AmLODIPine BESYLATE 10 MG TABLET PO SCH (07:30)
[2016-10-05] MEDS: LISINOPRIL 10 MG TABLET PO SCH (07:30)
[2016-10-05] MEDS: LORATADINE 10 MG TABLET PO SCH (07:35)
[2016-10-05] MEDS: ASPIRIN 81 MG CHEWABLE TABLET PO SCH (07:35)
[2016-10-05] MEDS: TIMOLOL MALEATE 0.5% 5 ML OPHTHALMIC SOLUTION OU SCH (07:35)
[2016-10-05 08:01] VITALS: BP 141/66
[2016-10-05 08:17] LABS: ALBUMIN 2.6 g/dL (3.4-5.0); CALCIUM, TOTAL 8.9 mg/dL (8.8-10.5); CREATININE 0.96 mg/dL (0.60-1.30); POTASSIUM 3.8 mmol/L (3.5-5.1)
[2016-10-05] MEDS: VANCOMYCIN HCL 1 GM/D5% WATER 200 ML IV SCH (08:40)
[2016-10-05] MEDS: INSULIN ASPART 100 UNITS/ML SQ PRN ×2 (11:10→16:45)
[2016-10-05] MEDS: CefTRIAXone SODIUM 2 GM in DEXTROSE 5%-WATER 50 ML IV SCH ×2 (11:15→23:53)
[2016-10-05 11:17] VITALS: BP 138/73
[2016-10-05 11:41] LABS: GLUCOSE,POINT OF CARE 176 MG/DL (70-110)
[2016-10-05 15:10] VITALS: BP 131/75
[2016-10-05] MEDS ORDERED: SODIUM CHLORIDE 0.9% 500 ML IV ONE (15:50)
[2016-10-05 17:11] LABS: GLUCOSE,POINT OF CARE 178 MG/DL (70-110)
[2016-10-05 19:45] VITALS: BP 123/69
[2016-10-05] MEDS: LATANOPROST 0.005% 2.5 ML OPHTHALMIC SOLUTION OU SCH (20:00)
[2016-10-05] MEDS: MELATONIN 3 MG TABLET PO SCH (20:00)
[2016-10-05] MEDS: ATORVASTATIN CALCIUM 40 MG TABLET PO SCH (20:00)
[2016-10-05] MEDS: SitaGLIPtin PHOSPHATE 100 MG TABLET PO SCH (20:12)
[2016-10-05] MEDS: INSULIN DETEMIR 100 UNITS/ML SQ SCH (20:36)
[2016-10-05 22:46] LABS: GLUCOSE COMMENT 1 Received Meds; GLUCOSE,POINT OF CARE 225 MG/DL (70-110)
[2016-10-05 23:45] VITALS: BP 146/74
[2016-10-06 05:30] VITALS: BP 131/79
[2016-10-06] MEDS: ACETAMINOPHEN 325 MG TABLET PO PRN (05:53)
[2016-10-06 06:07] LABS: ANION GAP 8 mmol/L (8-16); CALCIUM, TOTAL 8.8 mg/dL (8.8-10.5); CARBON DIOXIDE 28 mmol/L (22-29); CHLORIDE 102 mmol/L (98-107); CREATININE 0.91 mg/dL (0.60-1.30); GLOMERULAR FILTR. RATE CALC > 60 mL/min (>60); POTASSIUM 3.6 mmol/L (3.5-5.1); SODIUM SERUM 138 mmol/L (136-145); UREA NITROGEN, BLOOD 11 mg/dL (7-18)
[2016-10-06 06:51] LABS: GLUCOSE COMMENT 1 Received Meds; GLUCOSE,POINT OF CARE 121 MG/DL (70-110)
[2016-10-06 07:56] VITALS: BP 147/70
[2016-10-06] MEDS: LORATADINE 10 MG TABLET PO SCH (09:10)
[2016-10-06] MEDS: DOCUSATE SODIUM 100 MG CAPSULE PO SCH ×2 (09:10→20:11)
[2016-10-06] MEDS: LISINOPRIL 10 MG TABLET PO SCH (09:11)
[2016-10-06] MEDS: ASPIRIN 81 MG CHEWABLE TABLET PO SCH (09:11)
[2016-10-06] MEDS: TraMADol HCL 50 MG TABLET PO PRN ×2 (09:11→23:25)
[2016-10-06] MEDS: AmLODIPine BESYLATE 10 MG TABLET PO SCH (09:11)
[2016-10-06] MEDS: OXYMETAZOLINE HCL 0.05% 15 ML NASAL SPRAY NASAL SCH ×2 (09:12→20:10)
[2016-10-06] MEDS: TIMOLOL MALEATE 0.5% 5 ML OPHTHALMIC SOLUTION OU SCH (09:13)
[2016-10-06] MEDS: VANCOMYCIN HCL 1 GM/D5% WATER 200 ML IV SCH (09:47)
[2016-10-06] MEDS: PANTOPRAZOLE SODIUM 40 MG/VIAL IVP SCH (09:52)
[2016-10-06 11:42] VITALS: BP 145/83
[2016-10-06] MEDS: CefTRIAXone SODIUM 2 GM in DEXTROSE 5%-WATER 50 ML IV SCH ×2 (15:50→23:17)
[2016-10-06 15:57] VITALS: BP 144/81
[2016-10-06 17:51] LABS: GLUCOSE,POINT OF CARE 194 MG/DL (70-110)
[2016-10-06 19:49] VITALS: BP 141/76
[2016-10-06] MEDS: LATANOPROST 0.005% 2.5 ML OPHTHALMIC SOLUTION OU SCH (20:11)
[2016-10-06] MEDS: MELATONIN 3 MG TABLET PO SCH (20:11)
[2016-10-06] MEDS: SitaGLIPtin PHOSPHATE 100 MG TABLET PO SCH (20:11)
[2016-10-06] MEDS: ATORVASTATIN CALCIUM 40 MG TABLET PO SCH (20:11)
[2016-10-06 20:26] LABS: GLUCOSE,POINT OF CARE 153 MG/DL (70-110)
[2016-10-06] MEDS: INSULIN DETEMIR 100 UNITS/ML SQ SCH (20:27)
[2016-10-06 23:23] VITALS: BP 138/86
[2016-10-07] MEDS: ACETAMINOPHEN 325 MG TABLET PO PRN ×3 (02:26→23:22)
[2016-10-07 04:46] VITALS: BP 153/82
[2016-10-07 05:35] LABS: GLUCOSE,POINT OF CARE 135 MG/DL (70-110)
[2016-10-07 06:53] LABS: ANION GAP 8 mmol/L (8-16); CALCIUM, TOTAL 8.8 mg/dL (8.8-10.5); CARBON DIOXIDE 28 mmol/L (22-29); CHLORIDE 100 mmol/L (98-107); GLOMERULAR FILTR. RATE CALC > 60 mL/min (>60); POTASSIUM 3.9 mmol/L (3.5-5.1); SODIUM SERUM 136 mmol/L (136-145); UREA NITROGEN, BLOOD 15 mg/dL (7-18)
[2016-10-07 07:47] VITALS: BP 145/78
[2016-10-07] MEDS: OXYMETAZOLINE HCL 0.05% 15 ML NASAL SPRAY NASAL SCH ×2 (07:53→21:00)
[2016-10-07] MEDS: AmLODIPine BESYLATE 10 MG TABLET PO SCH (07:54)
[2016-10-07] MEDS: DOCUSATE SODIUM 100 MG CAPSULE PO SCH ×2 (07:54→20:29)
[2016-10-07] MEDS: LORATADINE 10 MG TABLET PO SCH (07:54)
[2016-10-07] MEDS: LISINOPRIL 10 MG TABLET PO SCH (07:54)
[2016-10-07] MEDS: TIMOLOL MALEATE 0.5% 5 ML OPHTHALMIC SOLUTION OU SCH (07:54)
[2016-10-07] MEDS: ASPIRIN 81 MG CHEWABLE TABLET PO SCH (07:54)
[2016-10-07] MEDS: PANTOPRAZOLE SODIUM 40 MG/VIAL IVP SCH (07:55)
[2016-10-07] MEDS: MAGNESIUM HYDROXIDE SUSPENSION 30 ML UDCUP PO PRN (07:59)
[2016-10-07] MEDS: VANCOMYCIN HCL 1 GM/D5% WATER 200 ML IV SCH (08:04)
[2016-10-07 11:01] VITALS: BP 144/81
[2016-10-07 11:46] LABS: GLUCOSE,POINT OF CARE 152 MG/DL (70-110)
[2016-10-07] MEDS: CefTRIAXone SODIUM 2 GM in DEXTROSE 5%-WATER 50 ML IV SCH ×2 (12:31→23:31)
[2016-10-07] MEDS: INSULIN ASPART 100 UNITS/ML SQ PRN ×2 (12:37→17:31)
[2016-10-07 15:36] VITALS: BP 140/77
[2016-10-07 17:47] LABS: GLUCOSE COMMENT 1 Received Meds; GLUCOSE,POINT OF CARE 165 MG/DL (70-110)
[2016-10-07 19:39] VITALS: BP 130/72
[2016-10-07] MEDS: TraMADol HCL 50 MG TABLET PO PRN (19:39)
[2016-10-07] MEDS: ATORVASTATIN CALCIUM 40 MG TABLET PO SCH (20:29)
[2016-10-07] MEDS: SitaGLIPtin PHOSPHATE 100 MG TABLET PO SCH (20:29)
[2016-10-07] MEDS: MELATONIN 3 MG TABLET PO SCH (20:29)
[2016-10-07] MEDS: LATANOPROST 0.005% 2.5 ML OPHTHALMIC SOLUTION OU SCH (20:30)
[2016-10-07] MEDS: INSULIN DETEMIR 100 UNITS/ML SQ SCH (20:40)
[2016-10-07 21:11] LABS: GLUCOSE COMMENT 1 Received Meds; GLUCOSE,POINT OF CARE 158 MG/DL (70-110)
[2016-10-07 23:09] VITALS: BP 147/74
[2016-10-07] MEDS ORDERED: SODIUM CHLORIDE 0.9% 250 ML IV ONE (23:31)
[2016-10-08 04:57] VITALS: BP 144/81
[2016-10-08] MEDS: TraMADol HCL 50 MG TABLET PO PRN ×2 (05:43→23:28)
[2016-10-08] MEDS: INSULIN ASPART 100 UNITS/ML SQ PRN ×3 (05:44→17:55)
[2016-10-08 06:21] LABS: GLUCOSE COMMENT 1 Received Meds; GLUCOSE,POINT OF CARE 154 MG/DL (70-110)
[2016-10-08 06:32] LABS: CALCIUM, TOTAL 9.2 mg/dL (8.8-10.5); CREATININE 0.95 mg/dL (0.60-1.30); POTASSIUM 4.1 mmol/L (3.5-5.1)
[2016-10-08 08:04] VITALS: BP_SYST 139; BP_DIAS 7; BP_DIAS 79
[2016-10-08] MEDS: ASPIRIN 81 MG CHEWABLE TABLET PO SCH (08:34)
[2016-10-08] MEDS: TIMOLOL MALEATE 0.5% 5 ML OPHTHALMIC SOLUTION OU SCH (08:34)
[2016-10-08] MEDS: PANTOPRAZOLE SODIUM 40 MG/VIAL IVP SCH (08:35)
[2016-10-08] MEDS: LISINOPRIL 10 MG TABLET PO SCH (08:35)
[2016-10-08] MEDS: LORATADINE 10 MG TABLET PO SCH (08:35)
[2016-10-08] MEDS: OXYMETAZOLINE HCL 0.05% 15 ML NASAL SPRAY NASAL SCH ×2 (08:35→20:57)
[2016-10-08] MEDS: AmLODIPine BESYLATE 10 MG TABLET PO SCH (08:35)
[2016-10-08] MEDS: DOCUSATE SODIUM 100 MG CAPSULE PO SCH ×2 (08:35→20:58)
[2016-10-08] MEDS: ACETAMINOPHEN 325 MG TABLET PO PRN ×2 (08:41→16:07)
[2016-10-08] MEDS ORDERED: WATER FOR IRRIGATION,STERILE 1000 ML SOLUTION BOTTLE ONE (08:42)
[2016-10-08] MEDS: CefTRIAXone SODIUM 2 GM in DEXTROSE 5%-WATER 50 ML IV SCH ×2 (11:51→23:29)
[2016-10-08 11:52] VITALS: BP 119/76
[2016-10-08 15:45] VITALS: BP 106/65
[2016-10-08 16:06] LABS: GLUCOSE COMMENT 1 Received Meds; GLUCOSE,POINT OF CARE 145 MG/DL (70-110)
[2016-10-08 17:51] LABS: GLUCOSE COMMENT 1 Received Meds; GLUCOSE,POINT OF CARE 179 MG/DL (70-110)
[2016-10-08 19:34] VITALS: BP 140/69
[2016-10-08] MEDS: MELATONIN 3 MG TABLET PO SCH (20:58)
[2016-10-08] MEDS: SitaGLIPtin PHOSPHATE 100 MG TABLET PO SCH (20:58)
[2016-10-08] MEDS: LATANOPROST 0.005% 2.5 ML OPHTHALMIC SOLUTION OU SCH (20:58)
[2016-10-08] MEDS: ATORVASTATIN CALCIUM 40 MG TABLET PO SCH (20:58)
[2016-10-08 21:51] LABS: GLUCOSE,POINT OF CARE 135 MG/DL (70-110)
[2016-10-08] MEDS: INSULIN DETEMIR 100 UNITS/ML SQ SCH (23:29)
[2016-10-08 23:44] VITALS: BP 153/88
[2016-10-09 04:27] VITALS: BP 124/79
[2016-10-09] MEDS: INSULIN ASPART 100 UNITS/ML SQ PRN ×2 (05:19→11:57)
[2016-10-09] MEDS: ACETAMINOPHEN 325 MG TABLET PO PRN ×2 (05:33→10:59)
[2016-10-09 07:00] LABS: GLUCOSE COMMENT 1 Received Meds; GLUCOSE,POINT OF CARE 223 MG/DL (70-110)
[2016-10-09] MEDS: OXYMETAZOLINE HCL 0.05% 15 ML NASAL SPRAY NASAL SCH (08:04)
[2016-10-09] MEDS: PANTOPRAZOLE SODIUM 40 MG/VIAL IVP SCH (08:04)
[2016-10-09] MEDS: LORATADINE 10 MG TABLET PO SCH ×2 (08:05→08:10)
[2016-10-09] MEDS: DOCUSATE SODIUM 100 MG CAPSULE PO SCH (08:05)
[2016-10-09] MEDS: TIMOLOL MALEATE 0.5% 5 ML OPHTHALMIC SOLUTION OU SCH (08:05)
[2016-10-09] MEDS: LISINOPRIL 10 MG TABLET PO SCH (08:05)
[2016-10-09] MEDS: AmLODIPine BESYLATE 10 MG TABLET PO SCH (08:05)
[2016-10-09 08:08] VITALS: BP 135/68
[2016-10-09] MEDS: ASPIRIN 81 MG CHEWABLE TABLET PO SCH (08:11)
[2016-10-09] MEDS: TraMADol HCL 50 MG TABLET PO PRN ×2 (08:11→14:10)
[2016-10-09] MEDS ORDERED: ASPI-556 PO (10:23)
[2016-10-09] MEDS ORDERED: CEFT2FRO3 IVPB (10:27)
[2016-10-09] MEDS ORDERED: DSS100 PO (10:28)
[2016-10-09] MEDS ORDERED: XALA2.5OS OU (10:29)
[2016-10-09] MEDS ORDERED: LORA10TA60 PO (10:30)
[2016-10-09] MEDS ORDERED: OXYM30SP27 NASAL (10:30)
[2016-10-09] MEDS ORDERED: PANT20TA PO (10:31)
[2016-10-09] MEDS ORDERED: TIMO.5OS OU (10:34)
[2016-10-09] MEDS ORDERED: ACET650S28 PO (10:35)
[2016-10-09] MEDS ORDERED: TRAM50TA4 PO (10:36)
[2016-10-09] MEDS ORDERED: ACET-2902 PO (10:44)
[2016-10-09] MEDS: CefTRIAXone SODIUM 2 GM in DEXTROSE 5%-WATER 50 ML IV SCH (10:59)
[2016-10-09 11:57] VITALS: BP 132/98
[2016-10-09 13:06] LABS: GLUCOSE COMMENT 1 Received Meds; GLUCOSE,POINT OF CARE 171 MG/DL (70-110)
== END 2016-10-09 15:00 | disposition home health service (06) | DRG 133 ==
LOC: EMS 14:39 → 6N 22:26
PROVIDERS: ADMIT Hospitalist; ATTEND Internal Medicine
PROC: 099W4ZZ Drainage of Right Sphenoid Sinus, Percutaneous Endoscopic Approach (ICD-10-PCS; 2016-10-01)
PROC: 09SM4ZZ Reposition Nasal Septum, Percutaneous Endoscopic Approach (ICD-10-PCS; 2016-10-01)
PROC: 09QR4ZZ Repair Left Maxillary Sinus, Percutaneous Endoscopic Approach (ICD-10-PCS; 2016-10-01)
PROC: 09QQ4ZZ Repair Right Maxillary Sinus, Percutaneous Endoscopic Approach (ICD-10-PCS; 2016-10-01)
PROC: 09BM4ZZ Excision of Nasal Septum, Percutaneous Endoscopic Approach (ICD-10-PCS; 2016-10-01)
PROC: 099X4ZZ Drainage of Left Sphenoid Sinus, Percutaneous Endoscopic Approach (ICD-10-PCS; principal; 2016-10-01 07:30)
PROC: 02HV33Z Insertion of Infusion Device into Superior Vena Cava, Percutaneous Approach (ICD-10-PCS; 2016-10-03)
PROC: B518ZZA Fluoroscopy of Superior Vena Cava, Guidance (ICD-10-PCS; 2016-10-03)
DX: J01.40 Acute pansinusitis, unspecified (principal); E87.1 Hypo-osmolality and hyponatremia; E44.0 Moderate protein-calorie malnutrition; J34.2 Deviated nasal septum; E87.6 Hypokalemia; E78.2 Mixed hyperlipidemia; E86.0 Dehydration; E83.42 Hypomagnesemia; H40.9 Unspecified glaucoma; I12.9 Hypertensive chronic kidney disease with stage 1 through stage 4 chronic kidney disease, or unspecified chronic kidney disease; N18.9 Chronic kidney disease, unspecified; E11.319 Type 2 diabetes mellitus with unspecified diabetic retinopathy without macular edema; E11.22 Type 2 diabetes mellitus with diabetic chronic kidney disease; J32.4 Chronic pansinusitis; Z79.899 Other long term (current) drug therapy; Z79.4 Long term (current) use of insulin; Z98.49 Cataract extraction status, unspecified eye; Z98.890 Other specified postprocedural states; Z87.440 Personal history of urinary (tract) infections; Z82.49 Family history of ischemic heart disease and other diseases of the circulatory system; Z83.3 Family history of diabetes mellitus; N18.3 Chronic kidney disease, stage 3 (moderate)
CPT/HCPCS: 36569; 70450; 70486; 82306; 82570; 82607; 82746; 82962; 83036; 83735; 83930; 83935; 84100; 84132; 84156; 84300; 84439; 84443; 84550; 87015; 87040; 87070; 87086; 87101; 87176; 87205; 87804; 93005; 93017; 93306; 93350; 96361; 96372; 96374; 96375; 97161; 99285; C9113; J0171; J0295; J0330; J0456; J0461; J0696; J1100; J1250; J1644; J2250; J2270; J2405; J2543; J2704; J3010; J3370; J3475; J3490; J7030; J7040; J7050; J7060; J7120

== ENCOUNTER 2016-10-15 17:15 | Emergency (ER) | payer MEDICARE, OTHER ==
[~2016-10-15] VITALS: Ht 152.4 cm; Wt 65.0 kg
[~2016-10-15 17:15] MED LIST changes: +ACET-2902 PO; +ASPI-556 PO; +ATOR40TA28 PO; +CEFT2FRO3 IVPB; +DSS100 PO; +LISI-661 PO; +LORA10TA60 PO; +OXYM30SP27 NASAL; +PANT20TA PO; +SITA100 PO; +TIMO.5OS OU; +TRAM50TA4 PO
[2016-10-15 17:36] LABS: GLUCOSE,POINT OF CARE 198 MG/DL (70-110)
[2016-10-15] MEDS ORDERED: CefTRIAXone SODIUM 2 GM in DEXTROSE 5%-WATER 50 ML IV ONE (22:00)
[2016-10-15 22:55] VITALS: BP 170/98
== END 2016-10-15 23:45 | disposition home or self-care (01) ==
LOC: EMS 17:24
DX: T82.49XA Other complication of vascular dialysis catheter, initial encounter (principal); E11.9 Type 2 diabetes mellitus without complications; I11.9 Hypertensive heart disease without heart failure; E78.00 Pure hypercholesterolemia, unspecified
CPT/HCPCS: 82962; 96365; 99284; J0696; J7060

== ENCOUNTER 2016-10-16 09:37 | Emergency (ER) | payer MEDICARE, OTHER ==
[~2016-10-16] VITALS: Ht 152.4 cm; Wt 65.0 kg
[2016-10-16 09:51] LABS: GLUCOSE,POINT OF CARE 151 MG/DL (70-110)
[2016-10-16] MEDS ORDERED: ALTEPLASE 2 MG/VIAL IVCATH ONE (11:30)
[2016-10-16 11:47] LABS: PROTHROMBIN TIME 10.7 SEC (9.4-11.6)
[2016-10-16] MEDS ORDERED: ACETAMINOPHEN 325 MG TABLET PO ONE (12:45)
[2016-10-16 14:07] VITALS: BP 125/75
== END 2016-10-16 14:20 | disposition home or self-care (01) ==
LOC: EMS 09:38
DX: Z45.2 Encounter for adjustment and management of vascular access device (principal); E78.00 Pure hypercholesterolemia, unspecified; I11.9 Hypertensive heart disease without heart failure; E11.9 Type 2 diabetes mellitus without complications; Z79.82 Long term (current) use of aspirin; Z79.4 Long term (current) use of insulin
CPT/HCPCS: 36415; 82962; 85610; 99283; J2997

== ENCOUNTER → 2016-12-09 | Outpatient (CLI) | payer MEDICARE, OTHER | END | disposition home or self-care (01) | LOC: RADMN 09:33 | PROVIDERS: ATTEND Internal Medicine | DX: G31.9 Degenerative disease of nervous system, unspecified (principal); I67.2 Cerebral atherosclerosis; G93.89 Other specified disorders of brain; J32.9 Chronic sinusitis, unspecified; J34.89 Other specified disorders of nose and nasal sinuses | CPT/HCPCS: 70450; 70486 ==

== ENCOUNTER → 2017-12-09 | Outpatient (CLI) | payer MEDICARE ==
[~2017-12-09] MED LIST changes: -MELA3 PO; +MELA3TAB66 PO
== END | disposition home or self-care (01) ==
LOC: RADPV 09:54
PROVIDERS: ATTEND Internal Medicine Nephrology
DX: N18.9 Chronic kidney disease, unspecified (principal)
CPT/HCPCS: 76770

== ENCOUNTER → 2017-12-28 | Outpatient (CLI) | payer MEDICARE ==
[2017-12-28 09:28] LABS: BASOPHILS % (AUTO) 1.4 % (0.0-2.0); EOSINOPHILS % (AUTO) 6.6 % (1.0-6.0); HEMATOCRIT 35.4 % (36-46); HEMOGLOBIN 12.1 g/dL (12.0-16.0); LYMPHOCYTES # (AUTO) 2.3 K/uL (1.0-4.8); LYMPHOCYTES % (AUTO) 35.1 % (22.0-44.0); MEAN CORPUSCULAR HGB CONC 34.1 G/dL (31.0-37.0); MEAN CORPUSCULAR VOLUME 88 fL (80-100); MONOCYTES # (AUTO) 0.4 K/uL (0.1-1.0); NEUTROPHILS # (AUTO) 3.4 K/uL (1.8-7.7); NEUTROPHILS % (AUTO) 50.9 % (40.0-70.0); PLATELET COUNT (AUTO) 227 K/uL (150-450); RED BLOOD CELL COUNT(AUTO) 4.03 MIL/uL (4.00-5.20); RED CELL DISTRIBUTION WIDTH 12.3 % (11.5-14.5)
[2017-12-28 09:46] LABS: ALBUMIN 3.9 g/dL (3.4-5.0); CALCIUM, TOTAL 9.3 mg/dL (8.8-10.5); CHOL/HDL RATIO 2.3 (3.9-5.7); CREATININE 0.95 mg/dL (0.60-1.30); MAGNESIUM 1.7 mg/dL (1.80-2.40); PHOSPHORUS 3.8 mg/dL (2.5-4.9); POTASSIUM 4.5 mmol/L (3.5-5.1)
[2017-12-28 09:51] LABS: PROTEIN,URINE RANDOM 14 mg/dL (0-11.9)
[2017-12-28 10:09] LABS: HEMOGLOBIN A1C 6.6 % (4.5-6.2)
[2017-12-28 10:46] LABS: APPEARANCE,URINE CLEAR (CLEAR); BILIRUBIN,URINE NEGATIVE (NEGATIVE); GLUCOSE, URINE (UA) NEGATIVE (NEGATIVE); KETONES,URINE NEGATIVE (NEGATIVE); LEUKOCYTE ESTERASE ,URINE NEGATIVE (NEGATIVE); NITRATE,URINE NEGATIVE (NEGATIVE); OCCULT BLOOD,URINE NEGATIVE (NEGATIVE); PH,URINE 5.5 (5.0-8.0); PROTEIN,URINE NEGATIVE (NEGATIVE); UROBILINOGEN,URINE 0.2 mg/dL (<=1.0)
[2017-12-28 12:34] LABS: CREATININE,URINE 23.6 mg/dL (30.0-125.0)
[2017-12-28 12:56] LABS: CREATININE,SERUM FOR CRCL 0.95 mg/dL (0.60-1.30)
== END | disposition home or self-care (01) ==
LOC: LABPV 07:29
PROVIDERS: ATTEND Internal Medicine Nephrology
DX: I10 Essential (primary) hypertension (principal); E11.9 Type 2 diabetes mellitus without complications; E78.5 Hyperlipidemia, unspecified; E55.9 Vitamin D deficiency, unspecified; D63.1 Anemia in chronic kidney disease
CPT/HCPCS: 81050; 82043; 82306; 82570; 82575; 83036; 83735; 83970; 84156